=== PATIENT | female | born 1945 | race Caucasian/White ===

== ENCOUNTER 2019-10-04 10:58 | Outpatient (CLI) | payer OTHER ==
[~2019-10-04 10:58] MED LIST: COZAAR100 MG PO; NORVASC5 MG PO; TENORMIN50 M1 PO
== END 2019-10-04 11:08 | disposition home or self-care (01) ==
LOC: MAMO-SONO 10:58
DX: Z12.31 Encounter for screening mammogram for malignant neoplasm of breast (principal); Z87.898 Personal history of other specified conditions; N63.10 Unspecified lump in the right breast, unspecified quadrant; N63.20 Unspecified lump in the left breast, unspecified quadrant

== ENCOUNTER 2020-05-24 10:03 | Outpatient (CLI) | payer OTHER | END 2020-05-24 10:14 | disposition home or self-care (01) | LOC: RAD 10:03 | PROVIDERS: ATTEND Ophthalmology | DX: I10 Essential (primary) hypertension (principal) ==

== ENCOUNTER 2021-04-26 09:06 | Emergency (ER) | payer OTHER ==
[~2021-04-26] VITALS: Ht 167.6 cm; Wt 70.3 kg
[2021-04-26] MEDS ORDERED: LEVALBUTER1.25 MG/3 IH (09:26)
[2021-04-26] MEDS ORDERED: MEMANTINE HCL E28 MG PO (09:26)
[2021-04-26] MEDS ORDERED: GALANTAMINE HBR24 MG PO (09:26)
[2021-04-26] MEDS ORDERED: CARBIDOPA-LEVO1 EAC9 PO (09:27)
[2021-04-26] MEDS ORDERED: LOSARTAN POTAS100 MG PO (09:27)
[2021-04-26] MEDS ORDERED: NEUPRO1 EAC5 TOP (09:27)
[2021-04-26] MEDS ORDERED: LOPRESSOR HCT1 EACH PO (09:27)
[2021-04-26] MEDS ORDERED: XANAX0.25 MG PO (09:28)
[2021-04-26] MEDS ORDERED: PAXIL30 MG PO (09:28)
== END 2021-04-26 14:33 | disposition home or self-care (01) ==
LOC: ER 09:06
DX: K52.89 Other specified noninfective gastroenteritis and colitis (principal); R10.13 Epigastric pain

== ENCOUNTER 2022-06-17 08:41 | Outpatient (CLI) | payer OTHER ==
[~2022-06-17 08:41] MED LIST changes: +CARBIDOPA-LEVO1 EAC9 PO; +GALANTAMINE HBR24 MG PO; +LEVALBUTER1.25 MG/3 IH; +LOPRESSOR HCT1 EACH PO; +LOSARTAN POTAS100 MG PO; +MEMANTINE HCL E28 MG PO; +NEUPRO1 EAC5 TOP; +PAXIL30 MG PO; +XANAX0.25 MG PO
[2022-06-17] MEDS ORDERED: CRESTOR5 MG (11:22)
[2022-06-18] MEDS ORDERED: NEUPRO1 EAC5 (07:56)
[2022-06-18] MEDS ORDERED: ALPRAZOLAM0.25 MG (07:57)
== END 2022-06-17 13:27 | disposition home or self-care (01) ==
LOC: WOUND MED 08:41
PROVIDERS: ATTEND Surgery
DX: L89.159 Pressure ulcer of sacral region, unspecified stage (principal)
CPT/HCPCS: A4927; A6220; A6223; G0463

== ENCOUNTER 2022-06-17 10:54 | Inpatient (IN) | payer OTHER ==
[~2022-06-17] VITALS: Ht 167.6 cm; Wt 52.2 kg
[2022-06-17] MEDS ORDERED: CRESTOR5 MG (11:22)
[2022-06-18] MEDS ORDERED: NEUPRO1 EAC5 (07:56)
[2022-06-18] MEDS ORDERED: ALPRAZOLAM0.25 MG (07:57)
[2022-07-29] MEDS ORDERED: LOSARTAN POTAS100 MG PO (16:22)
[2022-07-29] MEDS ORDERED: GALANTAMINE HBR24 MG PO (16:22)
[2022-07-29] MEDS ORDERED: TOPROL XL25 M1 PO (16:23)
[2022-07-29] MEDS ORDERED: PAXIL30 MG PO (16:24)
[2022-07-29] MEDS ORDERED: CRESTOR5 MG PO (16:24)
[2022-07-29] MEDS ORDERED: NEUPRO1 EAC5 TOP (16:25)
[2022-07-29] MEDS ORDERED: FOLIC ACID1 MG PO (16:26)
[2022-07-29] MEDS ORDERED: ULTRA B-100 CO1 EAC1 PO (16:29)
[2022-07-29] MEDS ORDERED: JUVEN PACKET1 EAC1 PO (16:31)
[2022-07-29] MEDS ORDERED: FUSION PLUS CA1 EACH PO (16:35)
== END 2022-07-29 17:48 | disposition home or self-care (01) | DRG 463 ==
LOC: ER 10:54 → MEDI 16:23
PROVIDERS: ADMIT Internal Medicine; ATTEND Internal Medicine
PROC: BW28ZZZ Computerized Tomography (CT Scan) of Head (ICD-10-PCS; 2022-06-17)
PROC: BR29ZZZ Computerized Tomography (CT Scan) of Lumbar Spine (ICD-10-PCS; 2022-06-17)
PROC: BR2 Imaging, Axial Skeleton, Except Skull and Facial Bones, Computerized Tomography (CT Scan) (ICD-10-PCS; 2022-06-17)
PROC: CP261ZZ Tomographic (Tomo) Nuclear Medicine Imaging of Pelvis using Technetium 99m (Tc-99m) (ICD-10-PCS; 2022-06-19)
PROC: CW2 Nuclear Medicine, Anatomical Regions, Tomographic (Tomo) Nuclear Medicine Imaging (ICD-10-PCS; 2022-06-19)
PROC: 0JB70ZZ Excision of Back Subcutaneous Tissue and Fascia, Open Approach (ICD-10-PCS; principal; 2022-06-22)
PROC: B54MZZZ Ultrasonography of Right Upper Extremity Veins (ICD-10-PCS; 2022-06-22)
PROC: 0QB10ZX Excision of Sacrum, Open Approach, Diagnostic (ICD-10-PCS; 2022-06-26)
PROC: 2W15X6Z Compression of Back using Pressure Dressing (ICD-10-PCS; 2022-07-09)
PROC: 2W05X6Z Change Pressure Dressing on Back (ICD-10-PCS; 2022-07-15)
PROC: BW24ZZZ Computerized Tomography (CT Scan) of Chest and Abdomen (ICD-10-PCS; 2022-07-16)
DX: M46.28 Osteomyelitis of vertebra, sacral and sacrococcygeal region (principal); L89.154 Pressure ulcer of sacral region, stage 4; I96 Gangrene, not elsewhere classified; L02.212 Cutaneous abscess of back [any part, except buttock and flank]; B37.49 Other urogenital candidiasis; J90 Pleural effusion, not elsewhere classified; B96.20 Unspecified Escherichia coli [E. coli] as the cause of diseases classified elsewhere; B95.2 Enterococcus as the cause of diseases classified elsewhere; D64.89 Other specified anemias; I10 Essential (primary) hypertension; G30.9 Alzheimer's disease, unspecified; F02.80 Dementia in other diseases classified elsewhere, unspecified severity, without behavioral disturbance, psychotic disturbance, mood disturbance, and anxiety; G20 Parkinson's disease; E78.5 Hyperlipidemia, unspecified; Z74.01 Bed confinement status

== ENCOUNTER 2022-08-07 10:51 | Inpatient (IN) | payer OTHER ==
[~2022-08-07] VITALS: Ht 162.6 cm; Wt 54.4 kg
[~2022-08-07 10:51] MED LIST changes: +ALPRAZOLAM0.25 MG; +CRESTOR5 MG; +CRESTOR5 MG PO; +FOLIC ACID1 MG PO; +FUSION PLUS CA1 EACH PO; +JUVEN PACKET1 EAC1 PO; +NEUPRO1 EAC5; +TOPROL XL25 M1 PO; +ULTRA B-100 CO1 EAC1 PO
--- NOTE | 2022-08-07 13:10 | NUR ---
SE RECIBE FEMINA DE 76 ANOS EN AMBULANCIA. PARAMEDICOS ASISTIENDO CON RESUCITADOR MANUAL. SE ADMITE A PTE A UNIDAD DE CRITICO PARA INTERVENIR. 1047 SE NOTIFICA CLAVE VASILE EN ALTAVOZ POR SADAF CRABTREE. LALITO JEFFERSON ASISTE. SE OBSERVA A PTE CANALIZADA EN MANO DERECHA CON ANGIO 20 POR PARAMEDICOS, PTE CON PARSONS DESDE BULL HOGAR. SE OBSERVA A PTE LETARGICA, BRAZO JULISSA CON LACERACION, ULCERA SACRAL Y PREVENCION CON TOBILLERAS. SE CONECTA MONITOR CARDIACO Y OXIMETRIA DE PULSO. PTE INTUBADA POR PARAMEDICO CON LMA (LARYNGEAL MASK AIRWAY) SE CANALIZA A LA PTE EN UNIDAD DE CRITICO EN BRAZO DERECHO #22 1056 DXT 87MG/DL 1057 BLOOD PRESURE 78/63 MM/HG SE COMIENZA DRIP DE LEVOPHED 8MG/ 250ML D/W5% A 10ML/HR SE NOTIFICA A ANESTESIA SAIRA JHAVERI Y ASISTE EN INTUBACION 1120 SE REALIZA INTUBACION A LA PTE CON TUBO 6.5 FIJADOR 21 1123 SE ADMINISTRA AMPOLLETA DE BICARBONATO 1129 MEDIDA BLOOD PRESURE 93/61 MM/HG SE LE KARTIK CUIDADO A PTE. SE MANTIENE EN OBSERVACION BAJO TRATAMIENTO. DEJUAN PIKE CONTINUA CON EL TRATAMIENTO DE LA PTE.
== END 2022-08-08 16:43 | disposition expired | DRG 208 ==
LOC: ER 10:51 → ICU-2 15:41 → ICU 21:39
PROVIDERS: ADMIT Internal Medicine; ATTEND Internal Medicine
PROC: 5A1945Z Respiratory Ventilation, 24-96 Consecutive Hours (ICD-10-PCS; principal; 2022-08-07)
PROC: 0BH17EZ Insertion of Endotracheal Airway into Trachea, Via Natural or Artificial Opening (ICD-10-PCS; 2022-08-07)
DX: J96.01 Acute respiratory failure with hypoxia (principal); A41.01 Sepsis due to Methicillin susceptible Staphylococcus aureus; L89.154 Pressure ulcer of sacral region, stage 4; J69.0 Pneumonitis due to inhalation of food and vomit; R65.21 Severe sepsis with septic shock; I21.A1 Myocardial infarction type 2; N17.9 Acute kidney failure, unspecified; I96 Gangrene, not elsewhere classified; F02.81 Dementia in other diseases classified elsewhere, unspecified severity, with behavioral disturbance; G30.9 Alzheimer's disease, unspecified; G20 Parkinson's disease; I95.9 Hypotension, unspecified; E86.0 Dehydration; Z74.01 Bed confinement status; Z59.1 Inadequate housing; X30.XXXA Exposure to excessive natural heat, initial encounter